=== PATIENT | male | born 1995 | race Caucasian/White ===

== ENCOUNTER 2020-11-22 18:41 | Emergency (ER) | payer OTHER, SELFPAY ==
--- NOTE | ~2020-11-22 | XR_ITS ---
EXAMINATION: XR hand RT min 3V INDICATION: Right hand pain, initial encounter TECHNIQUE: Three views of the right hand are obtained on four radiographs. COMPARISON: None available FINDINGS: There is an acute, traumatic, closed, transverse fracture in the distal shaft of the fifth metacarpal. There are 40 degrees of valgus angulation at the fracture site. Soft tissue swelling surr ounds the fracture. The joint spaces are normal. No additional acute osseous findings are evident. IMPRESSION: 1. Angulated fracture in the distal shaft of the fifth metacarpal. Reviewed, dictated and finalized at location A. RTMENT EDITOR
[2020-11-22 18:42] VITALS: BP 142/87; PULSE 116; RESP 18; TEMP 37; O2SAT 100
[2020-11-22] MEDS: HYDROcodone/acetaminophen (*CRX) 5-325 MG TABLET 1 TAB PO (20:15)
[2020-11-22 20:30] VITALS: BP 132/78; PULSE 88; RESP 16; O2SAT 98
--- NOTE | 2020-11-22 20:52 | ED.GENADULT ---
HPI - General Adult General Chief complaint: Extremity Injury, Upper Stated complaint: right hand pain Time Seen by Provider: 11/22/20 18:49 Source: patient Mode of arrival: ambulatory Limitations: no limitations History of Present Illness HPI narrative: Patient presents with chief complaint of pain and deformity to the right fifth digit that began just prior to arrival after punching a solid wooden door. Patient still has range of motion and sensation to the finger. Patient reports pain and swelling to the area. Patient denies any other injury. Patient denies prior fracture to this area. Related Data Home Medications Medication Instructions Recorded Confirmed No Home Medications 11/22/20 11/22/20 Allergies Allergy/AdvReac Type Severity Reaction Status Date / Time No Known Allergies Allergy Verified 11/22/20 18:45 Review of Systems Review of Systems: Narrative: CONSTITUTIONAL: Denies fever, chills, or sweats. EYES: Denies visual changes, redness, or discharge. ENT: Denies rhinorrhea, congestion, sore throat, or otalgia. CARDIOVASCULAR: Denies chest pain, palpitations, or edema. RESPIRATORY: Denies cough or dyspnea. GASTROINTESTINAL: Denies abdominal pain, nausea, vomiting, or diarrhea. GENITOURINARY: Denies dysuria or hematuria. SKIN: Denies rash or itching. MUSCULOSKELETAL: Reports right hand deformity denies back pain, myalgia NEUROLOGIC: Denies headache, numbness, dizziness, or weakness. PSYCHIATRIC: Denies anxiety or depression. PMFSH Social History Social History Gender identity (if verbalized by the patient): Male Exam Narrative: Exam Narrative: GENERAL: Well-appearing, well-nourished. HEAD: Normocephalic, atraumatic. EYES: PERRLA and EOMI. CHEST: Clear to auscultation. No respiratory distress. No wheezes rales or rhonchi HEART: Regular rate and rhythm. Normal peripheral pulses. EXTREMITIES: Swelling, deformity and edema noted to the base of the right fifth digit. Cap refill still intact to the digits as well as range of motion to the DIP. SKIN: Warm, dry, no rash. NEURO: No focal deficits. Alert and oriented x3. PSYCH: Normal mood and affect. Course Vital Signs Vital signs: Vital Signs Temperature 98.6 F 11/22/20 18:42 Pulse Rate 116 H 11/22/20 18:42 Respiratory Rate 18 11/22/20 18:42 Blood Pressure 142/87 H 11/22/20 18:42 Pulse Oximetry 100 11/22/20 18:42 Temperature 98.6 F 11/22/20 18:42 Pulse Rate 88 11/22/20 20:30 Respiratory Rate 16 11/22/20 20:30 Blood Pressure 132/78 11/22/20 20:30 Pulse Oximetry 98 11/22/20 20:30 Procedures Orthopedic Splinting/Casting Injury #1: Side: right Upper Extremity Immobilizer: ulnar gutter OCL: ulnar gutter Pre-Procedure Neuro Vascular Exam: normal Post-Procedure Neuro Vascular Exam: normal Additional Comments: Patient reported with the splint in place. Discussed the need for follow-up, RICE instructions, as well as return to ER instructions. Medical Decision Making MDM Narrative Medical decision making narrative: Discussed need for follow-up, RICE instructions, return to ER instructions. Differential Diagnosis Differential Diagnosis: Fracture, sprain, strain Vital Signs Vital Signs: Vital Signs Temperature 98.6 F 11/22/20 18:42 Pulse Rate 116 H 11/22/20 18:42 Respiratory Rate 18 11/22/20 18:42 Blood Pressure 142/87 H 11/22/20 18:42 Pulse Oximetry 100 11/22/20 18:42 Temperature 98.6 F 11/22/20 18:42 Pulse Rate 88 11/22/20 20:30 Respiratory Rate 16 11/22/20 20:30 Blood Pressure 132/78 11/22/20 20:30 Pulse Oximetry 98 11/22/20 20:30 Imaging Data Radiologist's impression: ITS Impressions Hand X-Ray 11/22/20 19:02 IMPRESSION: 1. Angulated fracture in the distal shaft of the fifth metacarpal. Discharge Plan Discharge Clinical Impression: Boxer's fracture Qualifiers: Encounter type: initial encounter F
== END 2020-11-22 20:30 | disposition home or self-care (01) ==
PROVIDERS: Emergency Provider Emergency Medicine
DX: S62.326A Displaced fracture of shaft of fifth metacarpal bone, right hand, initial encounter for closed fracture (principal); W22.8XXA Striking against or struck by other objects, initial encounter
CPT/HCPCS: 29125; 73130; 99284; A9270

== ENCOUNTER → 2020-12-01 02:56 | Outpatient (CLI) | payer OTHER, SELFPAY ==
[2020-12-01 21:05] LABS: SARS-CoV-2 RNA PCR Negative
== END ==
PROVIDERS: Visit Provider Plastic Surgery
DX: Z01.812 Encounter for preprocedural laboratory examination (principal); Z20.822 Contact with and (suspected) exposure to COVID-19
CPT/HCPCS: C9803; U0003; U0005

== ENCOUNTER 2020-12-04 01:08 | Day surgery (SDC) | payer OTHER, SELFPAY ==
[2020-11-26 12:35] VITALS: BMI 36.0
--- NOTE | 2020-12-03 09:45 | WPDANESEPPF ---
Anes - Initial Pre Proc Eval Procedure: Operation Date: 12/04/20 12:00 Proposed Procedures p Closed, Possible Open Reduction Internal Fixation Right Fifth Metacarpal Shaft Fracture - Abe Martines MD Date/Time: 12/03/20 09:45 Surgeon: Abe Martines MD Pre Op Diagnosis: rt 5th metacarpal shaft fx Patient Data Age: 25 Gender: M Height: 1.78 m Weight: 114 kg Allergies Allergy/AdvReac Type Severity Reaction Status Date / Time No Known Allergies Allergy Verified 12/04/20 10:02 Home Medications Medication Instructions Recorded Confirmed Type melatonin 10 mg PO HS PRN 11/26/20 12/04/20 History Patient hx anesthesia problems: none Family hx anesthesia problems: none PMFSH Past Medical History Medical History (Updated 12/03/20 @ 09:46 by Derik Jensen MD) Anxiety Asthma Obesity Social History Social History Smoking status: Never smoker Alcohol intake: current Drinks per week: 1 Alcohol use details: SOCIAL - APPROX 1 DRINK/MONTH Substance use: never Living arrangements: other Additional living arrangements comments: WITH GIRLFRIEND Gender identity (if verbalized by the patient): Male Anes - Eval Final PreProcedure Day of Procedure 12/03/20 09:45 Patient weight: obese Heart: regular rate and rhythm Lungs: clear to auscultation and normal air movement Airway: Mallampati scale class II Neurological: alert and oriented Last oral intake: >/= 8 hours ASA classification: II Emergent: no Anesthetic plan: proceed Anesthesia type and monitoring: general LMA Informed Consent: The patient's anesthetic plan and its attendant risks and benefits were discussed with the patient/family/POA. Questions were solicited and answers provided to the satisfaction of the patient/family/POA.
[2020-12-04] VITALS (7 sets, daily range): BP systolic 105–151; BP diastolic 59–82; PULSE 69–82; RESP 12–17; TEMP 36.3–36.8; O2SAT 92–100
--- NOTE | ~2020-12-04 | XR_ITS ---
EXAMINATION: XR surgery orthopedic DATE: 12/04/2020 13:40 INDICATION: ORIF closed fracture of the right fifth metacarpal TECHNIQUE: 4 fluoroscopic images of the ulnar side of the right hand were obtained during procedure p erformed by Dr. Martines. Radiologist was not present for the imaging or procedure. The amount of fluoro scopy time used during this procedure was 1.2 minutes. COMPARISON: 11/22/2020 FINDINGS: Interval reduction and percutaneous K wire fixation across a transverse fracture at the distal diaphy sis of the right fifth metacarpal. There is one cortical with residual palmar/radial displacement wit h resolution of prior mild angulation. No other fractures identified. Joint spaces are normal. IMPRESSION: 1. Near-anatomic alignment post reduction and projecting spleen fixation of an intra-articular fractu re of the right fifth metacarpal diaphysis. Reviewed, dictated and finalized at location B. IMPRESSION: 1. Near-anatomic alignment post reduction and projecting spleen fixation of an intra-articular fracture of the right fifth metacarpal diaphysis.
--- NOTE | 2020-12-04 07:15 | WPDHPUPDATE1 ---
History and Physical Update Update Date/Time: 12/04/20 07:15 History and Physical has been reviewed, including an updated exam of the patient. There are NO changes in the patient's condition. Risks, benefits, and alternatives have been discussed and questions answered. Patient agrees to proceed with procedure.
[2020-12-04] MEDS: LACTATED RINGERS 1,000 ML 30 ML IV CONT (10:24)
[2020-12-04] MEDS: ceFAZolin 2 GM/D5W 50 ML 2 GM/50 ML BAG IVPB (12:34)
[2020-12-04] MEDS: LIDO 1%/EPINEPHRINE 1:100,000 50 ML VIAL 10 ML INFILTRATE (12:34)
[2020-12-04] MEDS: BUPIVACAINE/EPINEPHRINE 0.5% 30 ML VIAL 5 ML INFILTRATE (13:08)
--- NOTE | 2020-12-04 13:30 | PM.OP ---
Procedure Note - Brief Procedure Note - Brief Date of procedure: 12/04/20 Pre-op diagnosis: rt 5th metacarpal shaft fx Post-op diagnosis: same Procedure performed: Closed reduction and intramedullary fixation left 5th metacarpal fracture Anesthesia: MAC Surgeon: Abe Martines MD Radiology Physician: Brigid Estimated blood loss (mL): 5 Drains: No Packing: No Pathology: yes Complications: No immediate complications Condition: stable Disposition: same day
--- NOTE | 2020-12-04 13:34 | PM.PROC ---
Procedure Note - Detailed Date of procedure: 12/04/20 Pre-op diagnosis: rt 5th metacarpal shaft fx Post-op diagnosis: same Procedure performed: Closed reduction intramedullary fixation right 5th metacarpal shaft fracture Description of procedure: The right hand was marked as the patient waited in the holding area. He was taken to the operating room and placed supine on the operating table Time-out was held and confirmed. The extremity was prepped and draped in usual fashion he was given IV sedation. The fluoroscope was brought to the hand table and the appropriate site for access to the intramedullary canal was marked. This area was infiltrated with 1% lidocaine with epinephrine. The tourniquet was inflated to 250 mmHg. The 1. 5 cm incision was made and the introducer was placed near the base of the 5th metacarpal. This was again imaged. Introduction into the medullary canal was achieved. The pin was advanced into the medullary canal and the introducer was removed. The fracture was reduced digitally and the pin advanced easily across the fracture line to the head of the metacarpal. The fracture was compressed. The pin was bent at the site of insertion. It was cut. The locking sleeve was placed and the plastic cap applied. Additional images were made. The wound was closed with interrupted 5 0 nylon and a bulky bandage with Eren wrap was applied. The area was infiltrated with 8 milliliter of 0.5% Marcaine with epinephrine for is discharged from the operating room stable condition a prescription for hydrocodone number 10 was sent to his pharmacy Surgeon: Abe Martines MD
== END 2020-12-04 14:50 | disposition home or self-care (01) ==
PROVIDERS: Visit Provider Plastic Surgery
PROC: (CPT 26615; principal; 2020-12-04 12:00)
DX: S62.326A Displaced fracture of shaft of fifth metacarpal bone, right hand, initial encounter for closed fracture (principal); W22.8XXA Striking against or struck by other objects, initial encounter; F41.9 Anxiety disorder, unspecified; J45.909 Unspecified asthma, uncomplicated; E66.9 Obesity, unspecified; Z68.36 Body mass index [BMI] 36.0-36.9, adult
CPT/HCPCS: 26615; A9270; C1713; C9803; J0690; J1100; J2250; J2405; J2704; J3010; J7120; U0003; U0005

== ENCOUNTER → 2021-02-09 03:32 | Outpatient (CLI) | payer OTHER, SELFPAY ==
[2021-02-11 12:54] LABS: SARS-CoV-2 RNA PCR Negative
== END ==
PROVIDERS: Visit Provider Plastic Surgery
DX: Z01.812 Encounter for preprocedural laboratory examination (principal); Z20.822 Contact with and (suspected) exposure to COVID-19
CPT/HCPCS: C9803; U0003; U0005

== ENCOUNTER 2021-02-12 00:24 | Day surgery (SDC) | payer OTHER, SELFPAY ==
[2021-02-03 14:15] VITALS: BMI 36.3
--- NOTE | 2021-02-11 10:41 | WPDANESEPPF ---
Anes - Initial Pre Proc Eval Procedure: Operation Date: 02/12/21 14:00 Proposed Procedures p Removal Of Intramedullary Chepe, Right Fifth Metacarpal - Abe Martines MD Date/Time: 02/11/21 10:41 Surgeon: Abe Martines MD Pre Op Diagnosis: status post closed reduction IM Fixation Patient Data Age: 25 Gender: M Height: 1.78 m Weight: 115 kg Allergies Allergy/AdvReac Type Severity Reaction Status Date / Time No Known Allergies Allergy Verified 02/12/21 12:03 Home Medications Medication Instructions Recorded Confirmed Type No Home Medications 02/03/21 02/12/21 History Patient hx anesthesia problems: none Family hx anesthesia problems: none [facility] Past Medical History Medical History (Updated 12/03/20 @ 09:46 by Derik Jensen MD) Anxiety Asthma Obesity Social History Social History Smoking status: Never smoker Alcohol intake: former Drinks per week: 1 Substance use: never Living arrangements: with friend(s) Additional living arrangements comments: WITH GIRLFRIEND Gender identity (if verbalized by the patient): Male Anes - Eval Final PreProcedure Day of Procedure 02/11/21 10:41 Patient weight: obese Heart: regular rate and rhythm Lungs: clear to auscultation and normal air movement Airway: Mallampati scale class II Neurological: alert and oriented Last oral intake: >/= 8 hours ASA classification: II Emergent: no Anesthetic plan: proceed Anesthesia type and monitoring: general GIVS and standard monitoring Informed Consent: The patient's anesthetic plan and its attendant risks and benefits were discussed with the patient/family/POA. Questions were solicited and answers provided to the satisfaction of the patient/family/POA.
--- NOTE | ~2021-02-12 | XR_ITS ---
EXAMINATION: XR surgery orthopedic DATE: 02/12/2021 14:48 INDICATION: Removal of intramedullary fouzia at the right fifth metacarpal. TECHNIQUE: 2 fluoroscopic images of the ulnar side of the right hand were obtained during procedure p erformed by Dr. Martines. Radiologist was not present for the imaging or procedure. The amount of fluoro scopy time used during this procedure was 0.1 minutes. COMPARISON: 12/04/2020 FINDINGS: Interval removal of the prior percutaneous intramedullary pin in the fifth metacarpal. No retained fo reign bodies identified. There is been interval healing with bridging callus formation about the dist al diaphyseal fracture of the fifth metacarpal which remains in near anatomic alignment. Indeterminat e widening of the fifth metacarpophalangeal joint space. IMPRESSION: 1. Removal of fixation from a healing fifth metacarpal diaphyseal fracture which remains in near-eve omic alignment 2. Indeterminate persistent mild widening of the right fifth metacarpophalangeal joint space. Reviewed, dictated and finalized at location A. IMPRESSION: 1. Removal of fixation from a healing fifth metacarpal diaphyseal fracture whic h remains in near-anatomic alignment 2. Indeterminate persistent mild widening of the right fifth metacarpophalangea l joint space.
--- NOTE | 2021-02-12 11:40 | WPDHPUPDATE1 ---
History and Physical Update Update Date/Time: 02/12/21 11:40 History and Physical has been reviewed, including an updated exam of the patient. There are NO changes in the patient's condition. Risks, benefits, and alternatives have been discussed and questions answered. Patient agrees to proceed with procedure.
[2021-02-12 12:09] VITALS: BP 118/65; PULSE 72; RESP 18; TEMP 36.8; O2SAT 100
[2021-02-12 12:10] VITALS: BMI 37.8
[2021-02-12] MEDS: LACTATED RINGERS 1,000 ML 30 ML IV CONT ×2 (12:30→14:42)
[2021-02-12] MEDS: LIDO 1%/EPINEPHRINE 1:100,000 50 ML VIAL INFILTRATE (14:39)
[2021-02-12 14:42] VITALS: BP 101/53; PULSE 70; RESP 16; O2SAT 94
--- NOTE | 2021-02-12 14:43 | PM.OP ---
Procedure Note - Brief Procedure Note - Brief Date of procedure: 02/12/21 Pre-op diagnosis: status post closed reduction IM Fixation Post-op diagnosis: same Procedure performed: Removal of IM fouzia right 5th metacarpal Anesthesia: MAC Surgeon: Abe Martines MD Tourniquet time (min): 9 Drains: No Packing: No Pathology: none sent Complications: No immediate complications Condition: stable Disposition: same day
[2021-02-12 15:10] VITALS: BP 120/60; PULSE 51
[2021-02-12 15:40] VITALS: BP 119/58; PULSE 73
--- NOTE | 2021-02-12 15:52 | PM.PROC ---
Procedure Note - Detailed Date of procedure: 02/12/21 Pre-op diagnosis: status post closed reduction IM Fixation Post-op diagnosis: same Procedure performed: Planned removal of Biomet intramedullary fixation device of the right 5th metacarpal Description of procedure: The patient is appropriate hand was marked in the holding area. He was taken to the operating room and placed supine on the operating table. A time-out was held and confirmed. He was given IV sedation. The extremity was prepped and draped in usual fashion. The site of the pin was palpable. This area was locally infiltrated with 1% lidocaine with epinephrine. The tourniquet was utilized to 250 mmHg. The small incision was made through the existing scar. The cap and sleeve were separately removed. A large needle lindsay was applied to the bent end of the fouzia and backed out carefully with rotation. To images with the C-arm were made indicating satisfactory position of the fragments and evidence of healing. The skin wound was closed with interrupted 5 0 nylon. A small bandage was applied was Coban wrap. The tourniquet was released and he is discharge instructions in wound care and follow-up. He has a prescription for tramadol 50 mg 1 or 2 Q 6 hours as needed number 8 Anesthesia: MAC Surgeon: Abe Martines MD Estimated blood loss (mL): 0 Tourniquet time (min): 12 Drains: No Packing: No Pathology: none sent Complications: No immediate complications Condition: stable Disposition: same day
== END 2021-02-12 15:53 | disposition home or self-care (01) ==
PROVIDERS: Visit Provider Plastic Surgery
PROC: (CPT 20694; principal; 2021-02-12 14:00)
DX: Z47.2 Encounter for removal of internal fixation device (principal); S62.326D Displaced fracture of shaft of fifth metacarpal bone, right hand, subsequent encounter for fracture with routine healing; E66.9 Obesity, unspecified; Z68.37 Body mass index [BMI] 37.0-37.9, adult
CPT/HCPCS: 20680; C9803; J2250; J2704; J3010; J7120; U0003; U0005